=== PATIENT | male | born 2000 | race Caucasian/White ===

== ENCOUNTER 2023-10-09 10:58 | Emergency (ER) | payer OTHER ==
[2023-10-09 11:16] VITALS: BP 128/85; PULSE 96; RESP 20; TEMP 98.2; BMI 27.3
== END 2023-10-09 12:50 | disposition home or self-care (01) ==
LOC: FER 10:58
DX: F10.929 Alcohol use, unspecified with intoxication, unspecified (principal); Y90.9 Presence of alcohol in blood, level not specified
CPT/HCPCS: 99283-25